=== PATIENT | male | born 1965 | race Caucasian/White ===

== ENCOUNTER 2019-10-24 05:46 | Day surgery (SDC) | payer OTHER, MEDICAID ==
[~2019-10-24] VITALS: Ht 170.2 cm; Wt 86.2 kg
[2019-10-24] MEDS ORDERED: fentaNYL 0.05 MG/ML VIAL ONE (07:07)
[2019-10-24] MEDS ORDERED: MIDAZOLAM 2 MG/2 ML VIAL ONE (07:07)
[2019-10-24] MEDS ORDERED: LIDOCAINE 2% 100 MG/5 ML UJET TP ONE (07:08)
[2019-10-24] MEDS ORDERED: MIDAZOLAM 2 MG/2 ML VIAL IVP ONE (07:34)
[2019-10-24] MEDS ORDERED: fentaNYL 0.05 MG/ML VIAL IVP ONE (07:35)
== END 2019-10-24 08:40 | disposition home or self-care (01) ==
LOC: MDS 05:46 → MMU 06:09 → MDS 08:40
PROVIDERS: ATTEND Internal Medicine Gastroenterology
DX: Z12.11 Encounter for screening for malignant neoplasm of colon (principal); K62.1 Rectal polyp; E66.9 Obesity, unspecified; I10 Essential (primary) hypertension; Z98.890 Other specified postprocedural states; Z79.899 Other long term (current) drug therapy; Z86.010 Personal history of colon polyps; Z80.6 Family history of leukemia
CPT/HCPCS: 45380; J2250; J3010